=== PATIENT | male | born 1960 | race Caucasian/White ===

== ENCOUNTER 2019-11-24 17:31 | Observation (INO) | payer OTHER, MEDICARE ==
[~2019-11-24] VITALS: Ht 182.9 cm; Wt 74.2 kg
[~2019-11-24 17:31] MED LIST: DIVALPROEX250 MG PO; FAMVIR500 MG PO; LORTAB 10-325 M1 TAB PO; QUETIAPINE FUMA25 MG PO; TRAZODONE50 MG PO; ULTRAM50 M1 PO; ZOVIRAX51 EX
--- NOTE | 2019-11-24 17:35 | NUR ---
PATIENT TO ROOM VIA WHEELCHAIR AND PHYSICIAN AT BEDSIDE FOR EVAL
--- NOTE | 2019-11-24 18:30 | NUR ---
PT PRESENTS WITH 3/10 MID CHEST PAIN STARTING A HOUR UPON ARRIVAL. PT DENIES DOING EXTRENUOUS ACTIVITY OR BEING UPSET UPON PAIN ONSET. NO PAIN UPON PALPATION. DENIES SOB OR OTHER S/S. PERRLA. LUNGS CLEAR BI.
[2019-11-24 19:04] LABS: HEMATOCRIT 39.7 % (39.0-50.0); HEMOGLOBIN 13.2 g/dl (14.0-18.0); IMMATURE GRANULOCYTES 0.3 % (0.0-5.0); MEAN CELL VOLUME 88.2 fL CALC (80.0-100.0); MEAN CORPUSCULAR HGB 29.3 pG CALC (26.0-32.0); MEAN CORPUSCULAR HGB CONC 33.2 g/dL CAL (32.0-36.0); NEUT# 3.98 thou/uL (1.82-7.42); RED BLOOD COUNT 4.5 mill/uL (4.70-6.10); RED CELL DISTRI WIDTH 13.1 % (11.5-15.5)
--- NOTE | 2019-11-24 19:18 | NUR ---
UPON REASSESSMENT PT STATES HAVING 1/10 PAIN AFTER ADMIN OF ASPIRIN
[2019-11-24 19:28] LABS: ALBUMIN 4.7 g/dL (3.2-5.0); ALKALINE PHOSPHATASE 60 u/l (38-126); ANION GAP 10 (6-22 (CALC)); BILIRUBIN, TOTAL 0.5 mg/dL (0.0-1.4); BUN 20 mg/dL (9-20); BUN/CREATININE RATIO 22 (12-20 (CALC)); CARBON DIOXIDE 30 mmol/l (22-30); CHLORIDE 102 mmol/l (95-108); CREATININE 0.9 mg/dL (0.7-1.3); GFR > 60 ML/MIN (>=60 (CALC)); GFR FOR AFR.AMER. > 60 ML/MIN (>=60 (CALC)); POTASSIUM 4.1 mmol/l (3.5-5.1); SGOT/AST 27 u/l (17-59); SODIUM 138 mmol/l (137-146); TOTAL PROTEIN 7.1 g/dL (6.3-8.2)
--- NOTE | 2019-11-24 20:50 | NUR ---
PT IN ROOM WITH , BROUGHT HIM FOOD TO EAT. PT DENIES ANY NEEDS
--- NOTE | 2019-11-24 21:51 | NUR ---
GAVE REPORT TO BE
--- NOTE | 2019-11-24 21:55 | NUR ---
GAVE REPORT TO WON
--- NOTE | 2019-11-24 22:10 | NUR ---
TRANSPORTED PT TO [facility] SURG STABLE AND IN NO DISTRESS. CARE ASSUMED TO FRAYA Admission Note Report Given to: Transported by: X Wheelchair Stretcher Transported with: X Nurse Transporter X Patent IV O2 X Electrical Prospecting Supervisor Location: ICU X MS2
[2019-11-24 22:23] VITALS: BP 113/72
[2019-11-24 23:55] VITALS: BP 116/76
[2019-11-25 03:32] VITALS: BP 105/68
[2019-11-25 06:49] LABS: CHOLESTEROL HDL RATIO 3.6 (<4.4 (CALC)); MAGNESIUM 2.1 mg/dL (1.6-2.3)
[2019-11-25 07:04] VITALS: BP 115/72
--- NOTE | 2019-11-25 07:30 | NUR ---
RECIEVED REPORT FROM COLBY UPTON. PT RESTING IN SEMI FOWLERS POSITION WATCHING TV. INTRODUCED SELF TO PT AND DISCUSSED POC. RESPIRATIONS ARE EVEN AND UNLABORED WITH NO SIGNS OF DISTRESS. PT DENIES ANY PAIN OR DISCOMFORTS AT THIS TIME. WILL CONTINUE TO MONITOR
--- NOTE | 2019-11-25 09:40 | NUR ---
ASSESSMENT AND VITALS COMPLETED AT THIS TIME. BP 115/72, HR 62, O2 98% ON ROOM AIR. RESPIRATIONS ARE EVEN AND UNLABORED WITH NO SIGNS OF DISTRESS. LUNG SOUNDS ARE CLEAR. HEART RHYTHM IS NORMAL, TELE IN PLACE. BOWEL SOUNDS ARE ACTIVE IN ALL QUADRANTS, LAST REPORTED BM 11/25/19.PT IS A/O X3 AND AMBULATORY RADIAL AND PEDAL PULSES ARE STRONG WITH NORMAL CAPILLARY REFILL. SKIN IS WARM AND DRY WITH NO BREAKDOWN. IV FLUSHED, SITE APPEARS HEALTHY AND PATENT. PT COMPLAINS OF 5/10 PAIN IN RIGHT SHOULDER, TYLENOL TO BE ADMINISTERED. INFORMED PT OF HOME MEDICATION NEEDED FOR HIS BIPOLAR WILL NEED TO BE BROUGHT TO HOSPITAL IF PT IS NOT DISCHARGED TODAY. PT VERBALIZED UNDERSTANDING.PT DENIES OF ANY PAIN OR ADDITIONAL NEEDS AT THIS TIME. ALL SAF[employer] PRECAUTIONS REAMIN IN PLACE WITH CALL LIGHT IN REACH. WILL CONTINUE TO MONITOR
--- NOTE | 2019-11-25 10:50 | NUR ---
DR BILLY AT BEDSIDE DISCUSSING POC
[2019-11-25 11:00] VITALS: BP 116/70
--- NOTE | 2019-11-25 11:33 | NUR ---
IV CATHATER REMOVED WITH CATHATER STILL INTACT. PT TOLERATED WELL. TELE MONITORING D/C. EDUCATED PT ON DISCHARGE INTRUCTIONS AND EDUCTAION. PT VERBALIZED UNDERSTANDING. AWAITING FOR PT TO GET DRESSED FOR DISCHARGE. REASSESSMENT OF PAIN, PT STATED THAT HE CURRENTLY HAD NO PAIN AND TYLENOL WAS WORKING. ALL SAFTEY PRECAUTIONS IN PLACE WITH CALL LIGTH IN REACH. WILL CONTINUE TO MONITOR
--- NOTE | 2019-11-25 11:38 | NUR ---
Discharge instructions given. Patient verbalizes understanding of same. Discharged in stable condition via Wheelchair to Home with family. All belongings sent with pt. PT LEFT FLOOR WALKING WITH STEADY GAIT IN STABLE CONDITION ACCOMPAINED BY SPOUSE. PT LEFT WITH DISCHARGE INTRUCTIONS AND BELONGINGS IN WIFES HAND
== END 2019-11-25 11:36 | disposition home or self-care (01) | DRG 313 ==
LOC: ED 17:31 → ED-I 19:44 → ED 19:53 → MS2 19:54 → ED-I 19:54 → MS2 21:22
PROVIDERS: Family Medicine; ADMIT Internal Medicine; ATTEND Internal Medicine
DX: R07.9 Chest pain, unspecified (principal); J44.9 Chronic obstructive pulmonary disease, unspecified; F31.9 Bipolar disorder, unspecified; F17.200 Nicotine dependence, unspecified, uncomplicated; Z20.828 Contact with and (suspected) exposure to other viral communicable diseases

== ENCOUNTER 2022-04-13 23:15 | Emergency (ER) | payer MEDICARE ==
[~2022-04-13] VITALS: Ht 182.9 cm; Wt 75.9 kg
[2022-04-13 23:25] VITALS: BP 111/73
[2022-04-13 23:30] VITALS: BP 112/85
[2022-04-13 23:46] VITALS: BP 107/74
[2022-04-14] VITALS: BP 108/76
[2022-04-14 00:15] VITALS: BP 112/83
[2022-04-14 00:30] VITALS: BP 113/71
[2022-04-14 00:40] VITALS: BP 113/71
== END 2022-04-14 00:58 | disposition home or self-care (01) ==
LOC: ED 23:15
DX: S90.32XA Contusion of left foot, initial encounter (principal); F31.9 Bipolar disorder, unspecified; F17.210 Nicotine dependence, cigarettes, uncomplicated; W22.8XXA Striking against or struck by other objects, initial encounter

== ENCOUNTER 2022-09-12 17:43 | Observation (INO) | payer OTHER ==
[~2022-09-12] VITALS: Ht 182.9 cm; Wt 74.0 kg
[2022-09-12] VITALS (20 sets, daily range): BP systolic 106–139; BP diastolic 62–89
--- NOTE | 2022-09-12 18:07 | NUR ---
PT TAKEN TO ROOM 13. DR MCDONALD AT TRIAGE AND STS CALL STROKE ALERT
[2022-09-12 18:33] LABS: BASO% 0.6 % (0-3); EOS% 4.1 % (0-8); HEMATOCRIT 40.6 % (39.0-50.0); HEMOGLOBIN 13.1 g/dl (14.0-18.0); IMMATURE GRANULOCYTES 0.1 % (0.0-5.0); LYMPH% 34.9 % (15-41); MEAN CELL VOLUME 88.1 fL CALC (80.0-100.0); MEAN CORPUSCULAR HGB 28.4 pG CALC (26.0-32.0); MEAN CORPUSCULAR HGB CONC 32.3 g/dL CAL (32.0-36.0); MONO% 9.7 % (2-13); NEUT# 3.93 thou/uL (1.82-7.42); NEUT% 50.6 % (42-76); RED BLOOD COUNT 4.61 mill/uL (4.70-6.10); RED CELL DISTRI WIDTH 13.5 % (11.5-15.5)
[2022-09-12 18:50] LABS: PROTHROMBIN TIME 9.7 SECONDS (9.0-12.5)
[2022-09-12 18:51] LABS: ALBUMIN 4.5 g/dL (3.2-5.0); ALKALINE PHOSPHATASE 47 u/l (38-126); ANION GAP 10 (6-22 (CALC)); BILIRUBIN, TOTAL 0.6 mg/dL (0.2-1.3); BUN 20 mg/dL (8-23); BUN/CREATININE RATIO 21 (12-20 (CALC)); CARBON DIOXIDE 30 mmol/l (22-30); CHLORIDE 102 mmol/l (95-108); CREATININE 0.9 mg/dL (0.7-1.3); GFR FOR AFR.AMER. > 60 ML/MIN (>=60 (CALC)); GFR OTHER RACES > 60 ML/MIN (>=60 (CALC)); POTASSIUM 4.7 mmol/l (3.5-5.1); SGOT/AST 46 u/l (19-48); SODIUM 137 mmol/l (137-146); TOTAL PROTEIN 7.5 g/dL (6.3-8.2)
[2022-09-12 19:40] LABS: URINE BILIRUBIN - DIPSTICK NEGATIVE (NEGATIVE); URINE BLOOD DIPSTICK NEGATIVE (NEGATIVE); URINE COLOR YELLOW; URINE GLUCOSE - DIPSTICK NEGATIVE (NEGATIVE); URINE KETONE NEGATIVE (NEGATIVE); URINE LEUK ESTERASE NEGATIVE (NEGATIVE); URINE NITRITE - DIPSTICK NEGATIVE (Negative); URINE PH 7.5 (4.5-8.0); URINE PROTEIN - DIPSTICK NEGATIVE (NEG-TRACE); URINE UROBILINOGEN - DIPSTICK 0.2 E.U./dL (0.2)
--- NOTE | 2022-09-12 23:28 | NUR ---
CALLED REPORT TO TREVER BOWMAN. WILL TRANSFER PT TO ICU BED 3 VIA WHEELCHAIR.
--- NOTE | 2022-09-12 23:51 | NUR ---
PT TRANSFERRED TO ICU RM 3 VIA WHEELCHAIR. PT STABLE, A/O X4 IN NO DISTRESS. CARE ASSUMED BY TREVER BOWMAN.
[2022-09-13] VITALS (53 sets, daily range): BP systolic 88–124; BP diastolic 60–85
--- NOTE | 2022-09-13 | NUR ---
RECIEVED PATIENT FROM ER ALERT AND ORIENTED X 4. DENIES ANY PAIN OR DISCOMFORT. AMBULATED FROM WHEELCHAIR TO BED. VITAL SIGN STABLE. ORIENTED TO ROOM AND CALL LIGHT.
--- NOTE | 2022-09-13 02:00 | NUR ---
SLEEPING. VITAL SIGN REMAIN STABLE.
--- NOTE | 2022-09-13 04:00 | NUR ---
PATIENT SLEEPING .HEMODYNAMICALLY STABLE. NO S/S OF DISTRESS NOTED. CALL LIGHT IN REACH.
[2022-09-13 05:36] LABS: BASO% 0.8 % (0-3); EOS% 4.8 % (0-8); HEMATOCRIT 38.7 % (39.0-50.0); HEMOGLOBIN 12.6 g/dl (14.0-18.0); LYMPH% 33.7 % (15-41); MEAN CORPUSCULAR HGB 28.6 pG CALC (26.0-32.0); MEAN CORPUSCULAR HGB CONC 32.6 g/dL CAL (32.0-36.0); MONO% 11.3 % (2-13); NEUT# 3.51 thou/uL (1.82-7.42); NEUT% 49.4 % (42-76); RED BLOOD COUNT 4.4 mill/uL (4.70-6.10); RED CELL DISTRI WIDTH 13.5 % (11.5-15.5)
[2022-09-13 05:52] LABS: ALBUMIN 3.8 g/dL (3.2-5.0); ALKALINE PHOSPHATASE 65 u/l (38-126); ANION GAP 8 (6-22 (CALC)); BUN 20 mg/dL (8-23); BUN/CREATININE RATIO 22 (12-20 (CALC)); CARBON DIOXIDE 30 mmol/l (22-30); CHLORIDE 106 mmol/l (95-108); CREATININE 0.9 mg/dL (0.7-1.3); GFR FOR AFR.AMER. > 60 ML/MIN (>=60 (CALC)); GFR OTHER RACES > 60 ML/MIN (>=60 (CALC)); SGOT/AST 27 u/l (19-48); SODIUM 140 mmol/l (137-146); TOTAL PROTEIN 6.2 g/dL (6.3-8.2)
--- NOTE | 2022-09-13 06:16 | NUR ---
ASSISTED PATIENT TO THE BATHROOM.DENIES ANY TINGLING OR NUMBNESS ON HIS ARM . CONT. TO MONITOR.
--- NOTE | 2022-09-13 08:10 | NUR ---
PT IS HERE DUE TO A FALL AFTER EXPERIENCING RIGHT SIDED NUMBNESS AND TINGLING. CT NEGATIVE. NO OTHER DEFICITS NOTED. NIHSS IN ER WAS A 4. NIHSS ORDERED HOURLY, MOST RECENT SCORE OF 1 DUE TO SENSATION DIFFERENCES TO TOUCH. PT IS A/O, FOLLOWS COMMANDS, AND IS ABLE TO AMBULATE INDEPENDENTLY. PT IS IN NSR. LUNGS CLEAR BUT DIMINISHED LOWER. PT ON RA. BOWEL SOUNDS PRESENT X 4 QUADRANTS. NO SKIN BREAKDOWN OR WOUNDS NOTED. SKIN DRY AND COOL. STRONG PULSES IN ALL 4 EXTREMETIES. IV ACCESS IS 20G IN LAC HEP LOCK. PT DENIES ANY PAIN. BELONGINGS IN REACH AND PT RESTING COFORTABLY WITH TV ON.
[2022-09-13] MEDS ORDERED: TRAZODONE50 MG PO (09:33)
[2022-09-13] MEDS ORDERED: VENTOLIN HFA108 MCG IN (09:41)
[2022-09-13] MEDS ORDERED: DIVALPROEX SOD250 MG PO (09:43)
--- NOTE | 2022-09-13 09:50 | NUR ---
PT RESTING COMFORTABLY IN BED. PT DENIES ANY CONCERNS / COMPLAINTS AT THIS TIME. NIHSS PERFORMED ON PATIENT, SCORE OF 1. BELONGINGS WITHING REACH. 0800 NOTE
--- NOTE | 2022-09-13 09:52 | NUR ---
PT RESTING COMFORTABLY IN BED. DR BILLY AT BEDSIDE TO ASSESS PATIENT. FAMILY AT BEDSIDE.
--- NOTE | 2022-09-13 10:40 | NUR ---
PT BROUGHT TO MRI VIA WHEELCHAIR IN STABLE CONDITION.
--- NOTE | 2022-09-13 11:15 | NUR ---
PT IS BACK FROM MRI AND RESTING IN BED. NO PATIENT COMPLAINTS OR CONCERNS AT THIS TIME. BELONGINGS WITHIN REACH.
--- NOTE | 2022-09-13 12:15 | NUR ---
PT RESTING IN BED EATING LUNCH. BELONGINGS IN REACH. NO NEEDS AT THIS TIME.
--- NOTE | 2022-09-13 14:27 | NUR ---
PT SITTING AT SIDE OF BED. PT WAS SEEN BY PT. PT VOICES NO CONCERNS AT THIS TIME.
--- NOTE | 2022-09-13 15:43 | NUR ---
TELEPHONE ORDERS FROM DR BILLY TO CHANGE PT'S ORDERS FOR ECHO FROM INPATIENT TO OUTPATIENT SO THAT PATIENT CAN BE DISCHARGED TODAY.
--- NOTE | 2022-09-13 16:25 | NUR ---
DISCHARGE TEACHING COMPLETE, PT AWARE OF NEED TO FOLLOW UP WITH PCP AND SCHEDULE OUTPATIENT ECHO. PT DENIED ANY QUESTIONS OR CONCERNS. FAMILY PRESENT. IV REMOVED, PT DRESSED IN OWN CLOTHING. PT LEFT VIA WHEELCHAIR.
== END 2022-09-13 16:25 | disposition home or self-care (01) | DRG 93 ==
LOC: ED 17:43 → ICU 20:03
PROVIDERS: Family Medicine; ADMIT Internal Medicine; ATTEND Internal Medicine
DX: R20.2 Paresthesia of skin (principal); R42 Dizziness and giddiness; R47.81 Slurred speech; J44.9 Chronic obstructive pulmonary disease, unspecified; F31.9 Bipolar disorder, unspecified; S09.90XS Unspecified injury of head, sequela; F98.8 Other specified behavioral and emotional disorders with onset usually occurring in childhood and adolescence; E04.1 Nontoxic single thyroid nodule; R91.1 Solitary pulmonary nodule; F17.200 Nicotine dependence, unspecified, uncomplicated
CPT/HCPCS: J3101; Q9967